=== PATIENT | male | born 1985 | race African-American/Black ===

== ENCOUNTER 2017-10-22 01:59 | Emergency (ER) | payer SELFPAY ==
[~2017-10-22] VITALS: Ht 177.8 cm; Wt 97.5 kg
[2017-10-22] MEDS ORDERED: NKM (02:22)
[2017-10-22] MEDS ORDERED: Norco 5mg/325mg tab ORAL ONE (02:45)
--- NOTE | 2017-10-22 02:49 | Emergency Room Report ---
History of Present Illness General Chief Complaint: Lower Extremity Injury Source: Patient Present Illness HPI Is a 32-year-old male with no past medical history. Earlier this morning he was running and twisted his ankle. Now swollen. Hard Time walking on it. Pain is 7 out of 10. Worse with weightbearing. No fever chills but no nausea no vomiting. No other injury. Allergies: Coded Allergies: No Known Allergies (Unverified , 10/22/17) Patient History Past Medical History: see triage record, old chart reviewed Past Surgical History: none Pertinent Family History: none Social History: Denies: smoking Immunizations: other Reviewed Nursing Documentation: PMH: Agreed; PSxH: Agreed Nursing Documentation-PMH Past Medical History: No Stated History Review of Systems Eye: Denies: eye pain, blurred vision ENT: Denies: ear pain, nose congestion, throat swelling Respiratory: Denies: cough, shortness of breath Cardiovascular: Denies: chest pain, palpitations Gastrointestinal: Denies: abdominal pain, diarrhea, nausea, vomiting Musculoskeletal: Reports: joint pain, joint swelling; Denies: back pain Skin: Denies: rash Neurological: Denies: headache, numbness Endocrine: Denies: increased thirst, increased urine Hematologic/Lymphatic: Denies: easy bruising All Other Systems: negative except mentioned in HPI Physical Exam Vital Signs Date Time Temp Pulse Resp B/P (MAP) Pulse Ox O2 Delivery O2 Flow Rate FiO2 10/22/17 02:17 98.4 81 16 133/87 96 Room Air 98.4 vitals normal Sp02 EP Interpretation: reviewed, normal General Appearance: well appearing, no apparent distress, alert Head: normocephalic, atraumatic Eyes: bilateral eye PERRL, bilateral eye EOMI ENT: hearing grossly normal, normal pharynx Neck: full range of motion, supple, no meningismus Respiratory: chest non-tender, lungs clear, normal breath sounds Cardiovascular #1: regular rate, rhythm, no murmur Gastrointestinal: normal bowel sounds, non tender, no mass, no organomegaly, no bruit, non-distended Musculoskeletal: back normal, normal range of motion, other - Left ankle: He has edema and tenderness to the lateral malleolus. Ankle is stable. Sensation normal. Pulses normal. Neurologic: alert, oriented x3 Psychiatric: mood/affect normal Skin: warm/dry Procedures Splinting Splinting : Consent: Verbal Location: left ankle Pre-Made Type: aircast Pre-Proc Neuro Vasc Exam: normal Post-Proc Neuro Vasc Exam: normal Patient Tolerated: Well Complications: None Medical Decision Making Diagnostic Impression: Primary Impression: Left ankle sprain Qualified Codes: S93.492A - Sprain of other ligament of left ankle, initial encounter ER Course Patient with a left ankle sprain. No fracture or dislocation. Patient splinted and discharged home. Other X-Ray Diagnostic Results Other X-Ray Diagnostic Results : X-Ray ordered: left ankle x-rays # of Views/Limited Vs Complete: 3 View Indication: Pain EP Interpretation: Yes Interpretation: no dislocation, no fractures, other - STS Impression: Other Electronically Signed by: Chilango Bethea MD Last Vital Signs Date Time Temp Pulse Resp B/P (MAP) Pulse Ox O2 Delivery O2 Flow Rate FiO2 10/22/17 02:46 98.4 10/22/17 02:17 81 16 133/87 96 Room Air Status: improved Disposition: HOME, SELF-CARE Condition: Stable Scripts Ibuprofen* (MOTRIN*) 600 Mg Tablet 600 MG ORAL THREE TIMES A DAY, #30 TAB 0 Refills Prov: CHILANGO BETHEA M.D. 10/22/17 Referrals: NOT CHOSEN [facility]/,REFERRING (PCP) Additional Instructions: Rest. Elevate leg. Use crutches. Wear splint. Ice pack to the area . Return if worse. Follow-up your doctor in 7 days. CHILANGO BETHEA M.D. Oct 22, 2017 02:49
[2017-10-22] MEDS ORDERED: IBUPROFEN600 MG ORAL (03:10)
[2017-10-22 03:16] VITALS: BP 133/87
--- NOTE | 2017-10-22 10:58 | Diagnostic Imaging Report ---
Indication: Pain in left ankle, twisted one day prior Technique: 3 views of the left ankle Comparison: none Findings: No acute fractures. No dislocations. The joint spaces are preserved. Soft tissue swelling overlies lateral malleolus. Impression: No acute bony trauma. Evidence of lateral soft tissue injury
== END 2017-10-22 03:16 | disposition home or self-care (01) ==
LOC: EMR 02:43
DX: S93.492A Sprain of other ligament of left ankle, initial encounter (principal); X50.1XXA Overexertion from prolonged static or awkward postures, initial encounter; Y93.02 Activity, running; Y92.9 Unspecified place or not applicable
CPT/HCPCS: 29515; 99283